=== PATIENT | male | born 1980 | race Caucasian/White ===

== ENCOUNTER 2019-12-11 17:09 | Emergency (ER) | payer SELFPAY ==
[2019-12-11] MEDS ORDERED: Albuterol 0.083% 2.5 MG/3 ML Neb Soln ONE (17:16)
[2019-12-11] MEDS ORDERED: Albuterol 0.083% 2.5 MG/3 ML Neb Soln NEB ONE (17:17)
[2019-12-11] MEDS ORDERED: Ondansetron 4 MG/2 ML SDV IVPUSH ONE (17:17)
[2019-12-11] MEDS ORDERED: Acetaminophen 325 MG Tab PO ONE (17:19)
[2019-12-11] MEDS ORDERED: methylPREDNISolone Sodium Succinate 125 MG/2 ML SDV IVPUSH ONE (17:19)
--- NOTE | 2019-12-11 17:25 | EDM.PDOC ---
<Skylar Burton - Last Filed: 12/11/19 17:50> ED HPI GENERAL MEDICAL PROBLEM - General Chief Complaint: Respiratory Problem Stated Complaint: SOB ASTHMA AND BRONCITIS Time Seen by Provider: 12/11/19 17:19 Source of Information: Reports: Patient History Limitations: Reports: No Limitations - History of Present Illness INITIAL COMMENTS - FREE TEXT/NARRATIVE: pt became ill on Tuesday and has been having the sweats since that time. He has been very wheezy. He normally has an inhaler but does not have that He does have a history of asthma. Onset: Other ( started Tuesday. ) Duration: Hour(s): Location: Reports: Chest, Generalized, Other (sweats and fevers. ) Associated Symptoms: Reports: Fever/Chills, Malaise, Shortness of Breath, Weakness - Related Data Allergies Allergy/AdvReac Type Severity Reaction Status Date / Time Opioids - Morphine Analogues Allergy Respiratory Verified 12/11/19 17:24 Depression Home Meds: Home Meds Albuterol Sulfate [Albuterol Sulfate Hfa] 1 puff IH Q4H PRN 12/11/19 [History] Lisinopril [Zestril] 20 mg PO BID 12/11/19 [History] Potassium Chloride 10 meq PO DAILY 12/11/19 [History] predniSONE 20 mg PO DAILY #6 tab 12/11/19 [Rx] raNITIdine HCl [Zantac] 150 mg PO DAILY 12/11/19 [History] ED ROS GENERAL - Review of Systems Review Of Systems: See Below Constitutional: Reports: Fever, Chills, Malaise, Weakness, Decreased Appetite HEENT: Reports: Rhinitis Respiratory: Reports: Shortness of Breath, Wheezing, Cough, Other ( fever) Cardiovascular: Reports: No Symptoms Endocrine: Reports: No Symptoms GI/Abdominal: Reports: Nausea : Reports: No Symptoms Musculoskeletal: Reports: No Symptoms Skin: Reports: No Symptoms ED EXAM, GENERAL - Physical Exam Exam: See Below Free Text/Narrative:: pt arrived with sob, elevated fever and marked wheezing. Exam Limited By: Respiratory Distress General Appearance: Alert, Anxious, Moderate Distress, Other (pupils are equal and reactive. ) Ears: Normal TMs Nose: Normal Inspection Throat/Mouth: Normal Inspection Head: Atraumatic Neck: Normal Inspection Respiratory/Chest: Decreased Breath Sounds, Rales, Wheezing Cardiovascular: Regular Rate, Rhythm, Tachycardia GI/Abdominal: Soft, Non-Tender (Male) Exam: Normal Inspection, Deferred Rectal (Males) Exam: Deferred Back Exam: Normal Inspection Extremities: Normal Inspection Neurological: Alert, Oriented, Normal Cognition Psychiatric: Normal Affect Course - Vital Signs Last Recorded V/S: Last Vital Signs Temp 100.6 F 12/11/19 17:20 Pulse 104 H 12/11/19 18:40 Resp 17 12/11/19 18:40 BP 103/62 12/11/19 18:40 Pulse Ox 95 12/11/19 18:40 - Orders/Labs/Meds Orders: Active Orders 24 hr Category Date Time Status RT Aerosol Therapy [RC] ASDIRECTED Care 12/11/19 17:17 Active CULTURE BLOOD [BC] Urgent Lab 12/11/19 17:18 Received CULTURE BLOOD [BC] Urgent Lab 12/11/19 17:32 Received UA W/MICROSCOPIC [URIN] Urgent Lab 12/11/19 17:50 Ordered Sodium Chloride 0.9% [Normal Saline] 1,000 ml Med 12/11/19 17:30 Active IV ASDIRECTED Sodium Chloride 0.9% [Normal Saline] 1,000 ml Med 12/11/19 18:00 Active IV ASDIRECTED predniSONE Med 12/11/19 19:22 Once 20 mg PO ONETIME ONE Blood Culture x2 Reflex Set [OM.PC] Urgent Oth 12/11/19 17:47 Ordered Medication Orders Sodium Chloride (Normal Saline) 1,000 mls @ 999 mls/hr IV ASDIRECTED [facility] Last Admin: 12/11/19 17:30 Dose: 999 mls/hr Sodium Chloride (Normal Saline) 1,000 mls @ 999 mls/hr IV ASDIRECTED ARNIE Last Admin: 12/11/19 18:34 Dose: 999 mls/hr Prednisone (Prednisone) 20 mg PO ONETIME ONE Stop: 12/11/19 19:23 Labs: Laboratory Tests 12/11/19 12/11/19 12/11/19 Range/Units 17:18 17:18 17:25 WBC 10.5 (4.5-11.0) K/uL RBC 5.24 (4.30-5.90) M/uL Hgb 15.4 H (12.0-15.0) g/dL Hct 45.0 (40.0-54.0) % MCV 86 (80-98) fL MCH 29 (27-31) pg MCHC 34 (32-36) % Plt Count 294 (150-400) K/uL Neut % (Auto) 58 (36-66) % Lymph % (Auto) 24 (24-44) % [place] % (Auto) 11 H (2-6) % Eos % (Auto) 6 H (2-4) % Baso % (Auto) 1 (0-1) % Sodium 135 L (140-148) mmol/L Potassium 3.6 (3.6-5.2) mmol/L Chloride 100 (100-108) mmol/L Carbon Dioxide 21 (21-32) mmol/L Anion Gap 17.6 H (5.0-14.0) mmol/L BUN 16 (7-18) mg/dL Creatinine 1.6 H (0.8-1.3) mg/dL Est Cr Clr Drug Dosing 74.08 mL/min Estimated GFR (MDRD) 48 L (>60) Glucose 111 H (74-106) mg/dL Lactic Acid 2.6 H (0.4-2.0) mmol/L Calcium 8.8 (8.5-10.1) mg/dL Total Bilirubin 0.4 (0.2-1.0) mg/dL AST 21 (15-37) U/L ALT 37 (12-78) U/L Alkaline Phosphatase 65 (46-116) U/L Total Protein 8.4 H (6.4-8.2) g/dL Albumin 4.3 (3.4-5.0) g/dL Globulin 4.1 H (2.3-3.5) g/dL Albumin/Globulin Ratio 1.1 L (1.2-2.2) Meds: Medications Generic Name Dose Route Start Last Admin Trade Name Freq PRN Reason Stop Dose Admin Sodium Chloride 1,000 mls @ 999 mls/hr 12/11/19 17:30 12/11/19 17:30 Normal Saline IV 999 mls/hr ASDIRECTED ARNIE Administration Sodium Chloride 1,000 mls @ 999 mls/hr 12/11/19 18:00 12/11/19 18:34 Normal Saline IV 999 mls/hr ASDIRECTED ARNIE Administration Prednisone 20 mg 12/11/19 19:22 Prednisone PO 12/11/19 19:23 ONETIME ONE Discontinued Medications Generic Name Dose Route Start Last Admin Trade Name Danelle PRN Reason Stop Dose Admin Acetaminophen 650 mg 12/11/19 17:19 12/11/19 17:33 Tylenol PO 12/11/19 17:20 650 mg NOW ONE Administration Albuterol Confirm 12/11/19 17:16 12/11/19 17:23 Proventil Neb Soln Administered 12/11/19 17:17 Not Given Dose 2.5 mg .ROUTE .STK-MED ONE Albuterol 2.5 mg 12/11/19 17:17 12/11/19 17:23 Proventil Neb Soln NEB 12/11/19 17:18 2.5 mg ONETIME ONE Administration Methylprednisolone Sodium Succinate 125 mg 12/11/19 17:19 12/11/19 17:33 Solu-Medrol IVPUSH 12/11/19 17:20 125 mg ONETIME ONE Administration Ondansetron HCl 4 mg 12/11/19 17:17 12/11/19 17:38 Zofran IVPUSH 12/11/19 17:18 4 mg ONETIME ONE Administration Departure - Departure Disposition: Home, Self-Care 01 Clinical Impression: Asthma exacerbation Qualifiers: Asthma severity: moderate Asthma persistence: persistent Qualified Code(s): J45.41 - Moderate persistent asthma with (acute) exacerbation - Discharge Information Prescriptions: predniSONE 20 mg PO DAILY #6 tab Instructions: Asthma, Adult, Asthma Attack Prevention, Adult Forms: ED Department Discharge Additional Instructions: Start your prednisone tomorrow take full course, use your albuterol as needed every couple hours, please establish with primary care in the next 2 to 3 days for reevaluation, call return to the emergency department with worsening of symptoms Sepsis Event Note - Focused Exam Vital Signs: Vital Signs Temp Pulse Resp BP Pulse Ox 12/11/19 18:40 104 H 17 103/62 95 12/11/19 17:45 22 H 122/76 90 L 12/11/19 17:20 100.6 F 138 H 30 H 116/71 96 - My Orders Last 24 Hours: My Active Orders 12/11/19 19:22 predniSONE 20 mg PO ONETIME ONE - Assessment/Plan Last 24 Hours: My Active Orders 12/11/19 19:22 predniSONE 20 mg PO ONETIME ONE <SangitarKlever - Last Filed: 12/11/19 19:28> Departure - Departure Time of Disposition: 19:27 Condition: Fair Sepsis Event Note - Focused Exam Date Exam was Performed: 12/11/19 Time Exam was Performed: 19:24 - Assessment/Plan Plan: Took over care from Dr. Burton at 1830 shift change Assessment Acuity = acute on chronic Site and laterality = asthma exacerbation with bronchitis Etiology = unknown trigger possibly viral Manifestations = wheezing, dyspnea Location of injury = Home Lab values = CBC unremarkable CMP reveals a creatinine elevated 1.6 consistent with acute renal failure stage G3 a lactic acid slightly elevated 2.6 consistent lactic acidosis chest x-ray reveals no acute process Plan On reexam he has improved significantly since admission to the ED however he remains wheezing but is not hypoxic I did review lab work chest x-ray results with him plan is to discharge home prednisone 20 mg once a day for 7 days in combination with an albuterol inhaler which was provided in the emergency department elected to hold off on antibiotics at this time he is going to establish with primary care [facility] in the next 2 to 3 days for reevaluation This note was dictated using [employer] voice recognition software please call with any questions on syntax or grammar.
[2019-12-11] MEDS ORDERED: Sodium Chloride 0.9% 1,000 ML IV SCH ×2 (17:30→18:00)
--- NOTE | 2019-12-11 18:08 | CRLCR ---
INDICATION: Cough and shortness of breath. COMPARISON: None available. FINDINGS: PA and lateral views of the chest were obtained. The lungs are clear. No focal or diffuse infiltrates are present. The heart is normal in size. The mediastinum is normal in appearance. The osseous structures are normal in appearance for the patient`s age. IMPRESSION: Normal chest 2 views. Dictated by Alfie Rios MD @ Dec 11 2019 6:07PM Signed by Dr. Alfie Rios @ Dec 11 2019 6:07PM
[2019-12-11] MEDS ORDERED: predniSONE 20 MG Tab PO ONE (19:22)
== END 2019-12-11 19:39 | disposition home or self-care (01) ==
LOC: JP.ED 17:09
DX: J45.41 Moderate persistent asthma with (acute) exacerbation (principal); Z88.5 Allergy status to narcotic agent; Z79.899 Other long term (current) drug therapy
CPT/HCPCS: 36415; 71046; 80053; 83605; 85025; 87040; 87804; 94640; 96361; 96374; 96375; 99283; 99285; A9270; J2405; J2930; J7030; 87077; 87186

== ENCOUNTER 2022-07-13 09:01 | Emergency (ER) | payer OTHER ==
[2022-07-13] MEDS ORDERED: Sodium Chloride 0.9% 10 ML Syringe FLUSH PRN (09:03)
[2022-07-13] MEDS ORDERED: Aspirin 81 MG Tab.Chew PO ONE (09:03)
[2022-07-13] MEDS ORDERED: Pantoprazole 40 MG Vial IVPUSH ONE (09:21)
[2022-07-13] MEDS ORDERED: Albuterol 8 GM Inhaler INH ONE (09:21)
== END 2022-07-13 10:34 | disposition home or self-care (01) ==
LOC: JP.ED 09:01
DX: U07.1 COVID-19 (principal); J45.909 Unspecified asthma, uncomplicated; E11.9 Type 2 diabetes mellitus without complications; I10 Essential (primary) hypertension; K21.9 Gastro-esophageal reflux disease without esophagitis; E66.9 Obesity, unspecified; Z68.31 Body mass index [BMI] 31.0-31.9, adult; Z88.5 Allergy status to narcotic agent; Z91.040 Latex allergy status; Z79.899 Other long term (current) drug therapy
CPT/HCPCS: 36415; 80048; 84484; 85025; 85610; 85730; 93005; 94640; 96374; 99285; A9270; C9113; J3490